=== PATIENT | female | born 1955 | race Caucasian/White ===

== ENCOUNTER → 2016-05-25 | Outpatient (CLI) | payer OTHER ==
--- NOTE | 2016-05-25 14:18 | DX ---
DEXA Bone Mineral Densitometry Clinical Indications: 60-year-old female who went through menopause at age 52. There is a family hist ory of osteoporosis. The patient has had prior lumbar spine surgery. She took Evista for 2 years, alt sharita it is no longer taking this antiresorptive. She has been on hormone replacement therapy for 1-1 /2 years. Evaluate for estrogen deficiency, and screen for osteoporosis. Comparison: DEXA scan, dated March 11, 2015. Technique: Bone Mineral Densitometry (BMD) by [employer] X-Ray Absorptiometry (DEXA) was performed utilizing the Checkr scanner. The lumbar spine was not evaluated secondary to the prior surgi hernandez history at L4-L5 and L5-S1. Both hips and the right forearm were evaluated in the AP projection. Vertebral fracture assessment was also performed. A FRAX score was calculated. AP Left Hip: Femoral Neck BMD: 0.741 gm/cm2 T-score: -2.1 SD Z-score: -0.5 SD There has been a statistically significant interval increase in bone mineral density of 5.6% since previous study. AP Right Hip: Femoral Neck BMD: 0.675 gm/cm2 T-score: -2.6 SD* Z-score: -1.0 SD There has been no statistically significant interval change. AP Right Forearm, 05/26: BMD: 0.747 gm/cm2 T-score: -1.5 SD Z-score: -0.5 SD There has been no statistically significant interval change. Vertebral Fracture Assessment: There is no significant fracture forming which has developed since the previous study. A mild superior cortical endplate compression at L3 is unchanged from the prior stud y. FRAX Score: The 10 year probability for any major osteoporotic fracture is 18.5%, and for a hip fract ure is 4.4%. Conclusion: Considering the lowest measured site, the patient remains osteoporotic*. Any bone loss in this patient is probably related to aging or estrogen deficiency. Recommendations: 1. If not previously performed, consider excluding secondary metabolic causes of bone loss (reported to be present in as many as 30% of patients with normal Z scores). Basic laboratory evaluation might include blood chemistries (calcium, phosphorus, alkaline phosphatase, liver function tests, creatinin e, total protein), complete blood count, serum 25-OH- vitamin D3 level, 24-hour urine calcium, ser um TSH and serum PTH. Targeted laboratory testing based on individual patient circumstances might inc lude serum electrophoresis (SPEP or UPEP), anti-tissue transglutaminase antibody levels (celiac dise ase) , serum bone specific alkaline phosphatase, bone turnover markers (urine, serum) or fibroblast g rowth factor 23 (to evaluate for unexplained osteomalacia). 2. If secondary causes are excluded, then consider re-initiating treatment with a bisphosphonate (suc h as Fosamax, Actonel or Boniva). If the patient is unable to use an oral bisphosphonate, another age nt such as IV bisphosphonates (Boniva or Reclast), teriparatide (Forteo), a selective estrogen aquatic performer tor modulator (Evista) or denosumab ( anti RANKL monoclonal antibody) might be considered. 3. If antiresorptive therapy is initiated and if clinically indicated, consider obtaining a baseline and 3 month followup bone resorption marker (NTX, CTX, TRAP5b or Pyridinoline, deoxypyridinoline) to monitor the therapeutic effect. 4. Supplementing an insufficient diet to achieve total intakes of 1500 mg calcium and 800 Intern[place] al Units of vitamin D daily should be considered. 5. Osteoporosis prevention and treatment begins by modifying risk factors. The patient should be enco uraged to participate in a regular exercise program that includes weightbearing and muscle strengthen ing regimens, as is clinically appropriate. 6. Recommend follow-up DEXA in one year to assess the efficacy of pharmacologic intervention and/or c orrection of appropriate secondary cause(s).
== END ==
LOC: FIMAGING 13:25
PROVIDERS: ATTEND Family Medicine
DX: M81.0 Age-related osteoporosis without current pathological fracture (principal); Z78.0 Asymptomatic menopausal state; Z79.890 Hormone replacement therapy; Z82.62 Family history of osteoporosis

== ENCOUNTER → 2017-05-25 | Outpatient (CLI) | payer OTHER | LOC: FIMAGING 14:13 | PROVIDERS: ATTEND Family Medicine | DX: Z12.31 Encounter for screening mammogram for malignant neoplasm of breast (principal) ==

== ENCOUNTER → 2018-06-23 | Outpatient (CLI) | payer OTHER | LOC: FIMAGING 13:33 | PROVIDERS: ATTEND Family Medicine | DX: Z12.31 Encounter for screening mammogram for malignant neoplasm of breast (principal); Z13.820 Encounter for screening for osteoporosis; M81.0 Age-related osteoporosis without current pathological fracture; Z78.0 Asymptomatic menopausal state; Z79.52 Long term (current) use of systemic steroids ==